=== PATIENT | male | born 1995 | race African-American/Black ===

== ENCOUNTER 2016-12-16 11:07 | Emergency (ER) | payer SELFPAY ==
[~2016-12-16] VITALS: Ht 188 cm; Wt 79.5 kg
[2016-12-16 11:09] VITALS: BP 129/63; PULSE 72; RESP 15; TEMP 98.4; O2SAT 98
--- NOTE | 2016-12-16 11:32 | PD ---
Physical Exam Time Seen by Provider: 11:32 Narrative 21 y/o male with R knee pain which started during dancing activities with the marching band 2 weeks ago. Vital signs reviewed. Seen at triage desk. Awaiting bed placement. Data Data Last Documented VS Vital Signs Date Time Temp Pulse Resp B/P Pulse Ox O2 Delivery O2 Flow Rate FiO2 12/16/16 11:09 98.4 72 15 129/63 98 MDM Medical Record Reviewed: Yes Supervised Visit with GEORGIE: Gordon Kay Dec 16, 2016 11:32
--- NOTE | 2016-12-16 12:09 | PD ---
HPI Chief Complaint: Pain: Acute or Chronic Time Seen by Provider: 12:00 Travel History International Travel<30 days: No Contact w/Intl Traveler<30days: No Traveled to known affect area: No History of Present Illness HPI 21-year-old male presents emergency Department with complaint of right knee pain started after performing some dance moves during band 2 weeks ago. He said the pain is not that bad. He reports a popping sound when he bends and straightens his knee. Pain is located to the upper lateral area just above his kneecap. Denies paresthesias, loss of sensation, decreased range of motion, decreased strength to the affected extremity. Reports being ambulatory with a limp. Has continued to perform band for the last 2 weeks. Denies fever, vomiting. Been taking ibuprofen for symptom management. Has also worn a knee brace for symptom management. Symptoms are mild in severity. No known allergies. Has no other medical complaints. No other modifying factors or associated signs and symptoms. Allergies-Medications (Allergen,Severity, Reaction): Coded Allergies: No Known Allergies (Unverified , 12/16/16) Review of Systems Except as stated in HPI: all other systems reviewed are Neg Physical Exam Narrative GENERAL: Well-nourished, well-developed male patient, in no acute distress; afebrile, nontoxic-appearing SKIN: Warm and dry. HEAD: Atraumatic. Normocephalic. EYES: Pupils equal and round. No scleral icterus. No injection or drainage. ENT: Mucosa pink and moist. Airway patent. NECK: Trachea midline. CARDIOVASCULAR: Regular rate. RESPIRATORY: No accessory muscle use. GASTROINTESTINAL: Flat. MUSCULOSKELETAL: Right knee nonedematous, nonerythematous, and without ecchymosis; full range of motion and flexion to 90; point tenderness to the anterior, lateral, upper aspect just above the patella; joint stable with negative drawer test; no obvious deformity. Right Lower extremity is supple and non-tense with 2+ pedal pulse and sensory intact and without erythema or edema. Ambulatory in room with a limp to the right lower extremity. No obvious deformities. NEUROLOGICAL: Awake and alert. Oriented 3. No obvious cranial nerve deficits. Motor grossly within normal limits. Normal speech. PSYCHIATRIC: Appropriate mood and affect; insight and judgment normal. Data Data Last Documented VS Vital Signs Date Time Temp Pulse Resp B/P Pulse Ox O2 Delivery O2 Flow Rate FiO2 12/16/16 11:09 98.4 72 15 129/63 98 MDM Medical Screen Exam Complete: Yes Emergency Medical Condition: No Differential Diagnosis Knee sprain, tendon tear, meniscus tear, less likely fracture or dislocation Narrative Course 21-year-old male with right knee pain 2 weeks. I do not suspect fracture or dislocation and feel that imaging is not necessary at this time. Patient has knee brace for support. I offered the patient crutches and he declined. Vital signs are stable and the patient is stable for outpatient follow-up and treatment. The patient has no urgent or emergent medical complaints. There is no emergent or urgent medical need at this time. I instructed the patient to follow up with their primary care provider. A medical screening exam was performed: At the time of evaluation the presenting medical condition was determined not to be of an emergent nature. The patient was given the option of receiving additional care, but declined. Patient was given options for additional community resources from which to obtain care. The Patient Has Been advised to seek medical attention for their presenting complaint. The patient has been advised to return to the ER at any time if an emergent condition develops. Primary Impression: Encounter for medical screening examination Condition: Stable Carly Huntley PL[employer]ER Dec 16, 2016 12:09
== END 2016-12-16 12:08 | disposition left against medical advice (07) ==
LOC: NEPK 11:07
DX: M25.561 Pain in right knee (principal); X50.1XXA Overexertion from prolonged static or awkward postures, initial encounter; Y93.41 Activity, dancing; Y92.838 Other recreation area as the place of occurrence of the external cause
CPT/HCPCS: 99281